=== PATIENT | male | born 1960 | race Caucasian/White ===

== ENCOUNTER 2016-10-12 13:15 | Inpatient (IN) | payer OTHER ==
[~2016-10-12] VITALS: Ht 193 cm; Wt 70.3 kg
--- NOTE | 2016-10-12 13:29 | NUR ---
PT IS A 56 YEAR OLD MALE, PRESENTS TO ED VIA [facility] ALS WITH C/O DIZZINESS AND GENERALIZED WEAKNESS X3 DAYS. PER MEDIC, PT WAS AT [employer] UNDER TENT, BS ON SCENE WAS 156. PT DENIES ANY CHEST PAIN. EN ROUTE PT WAS GIVEN 250CC NS TOTAL. UPON ARRIVAL, PT REPORTS SLIGHT DIZZINESS, AND GENERALIZED WEAKNESSS, PT RBEATHING IS EVEN AND UNLABORED, NO S/S OF RESPRIATORY DISTRESS. SPEECH IS CLEAR AND APPROPRIATE. PT A/O X4. PT DENIES ANY N/V/D/C. PT HOOKED TO FULL PUMPER GAUGER APPRENTICE. MSE EPRFORMED BY DR. BRADLEY.
[2016-10-12 14:02] LABS: BASOPHIL % 0.7 % (0-2); PLATELET COUNT 255 x10^3mcL (130-400); RED CELL DISTRIBUTION WIDTH 15.1 % (11.5-14.5)
[2016-10-12 14:19] LABS: CALCIUM 9.9 mg/dL (8.5-10.1); CARBON DIOXIDE 25.8 mmol/L (21-32); CREATININE SERUM 2.5 mg/dL (0.7-1.3); POTASSIUM SERUM 4.2 mmol/L (3.5-5.1)
[2016-10-12 14:31] LABS: ALBUMIN 4.3 g/dL (3.4-5.0); BILIRUBIN TOTAL 0.4 mg/dL (0.20-1.00); MAGNESIUM 2.6 mg/dL (1.8-2.4); T4(THYROXINE) 10.3 ug/dL (4.7-13.3)
[2016-10-12 14:34] LABS: TOTAL PROTEIN, SERUM 8.4 g/dL (6.4-8.2)
[2016-10-12] MEDS ORDERED: METHOTREXATE (15:31)
[2016-10-12] MEDS ORDERED: FOLIC ACID (15:31)
[2016-10-12 15:41] LABS: UA SPECIFIC GRAVITY 1.025 (1.005-1.035); microscopic required? YES; urine erythrocyte TRACE (NEGATIVE)
[2016-10-12 15:51] LABS: AMPHETAMINE QUAL UR POSITIVE (NEG <=1000)
--- NOTE | 2016-10-12 16:14 | NUR ---
ADELA CALLED TO [facility], SHE WILL ASSUME CARE PRIMARY RN JUDIE ESPINO.
--- NOTE | 2016-10-12 17:39 | NUR ---
RECEIVED PT FROM ED [facility]IA [employer], CAME IN DUE TO SYNCOPE. AAOX4. DENIES HEADACHE/DIZZINESS AT THIS TIME. C/O TINGLING SENSATION ON HIS FACE. ABLE TO FOLLOW COMMANDS. C/O MILD SOB WORSE ON AMBULATION. ON 2LPM/NC, O2 SAT=99%. DENIES CHEST PAIN/PRESSURE, SR W/ ELEVATED T WAVE. DENIES ABDOMINAL DISCOMFORT. BOWEL SOUNDS ACTIVE. C/O 9/10 SHOULDER PAIN, RIGHT GREATER THAN THE LEFT. IV SITE PATENT AND INTACT. PAGED DR. RILEY FOR ADMIT ORDERS. WAITING FOR CALLBACK. SIDE RAILS UPX2. CALL LIGHT ON REACH. ENDORSED.
[2016-10-12 17:55] VITALS: BP 124/88
[2016-10-12 17:59] VITALS: Ht 193 cm; Wt 70.3 kg
--- NOTE | 2016-10-12 18:01 | NUR ---
CALLED TO DR. RILEY AND ASKED FOR ADMISSION ORDER, DR. RILEY SAID THAT HE WILL PUT ORDER IN THE [facility].
--- NOTE | 2016-10-12 18:55 | NUR ---
Pt. REMAINS AAOX4. RESPIRATIONS EVEN AND UNLABORED. DENIES PAIN/DISCOMFORT AT THIS TIME. NO DISTRESS NOTED AT THIS TIME. TELE IN PLACE. IVF RUNNING TO IV AT LEFT AC PATENT AND INTACT. SCD IN PLACE. BED LOW/LOCKED. CALL LIGHT IN REACH.
--- NOTE | 2016-10-12 20:15 | NUR ---
RECEIVED PT IN BED AAOX4 , PT'S VERY ANXIOUS /ANGRY WHEN ASK QUESTIONS , ON 2L N/C SAT 98% NO RESP DISTRESS NOTED, LUNG SOUNDS DIMINISHED , SKIN WARM TOUCH POOR HYGIENE NOTED , ABD SOFT BS ACTIVE X4, PT DENY SYNCOPE AT THE MOENT , TELE NUMBER 10 SHOWS SR WITH ELEVATED T-WAVE. PIV INTACT INFUSING WELL .
--- NOTE | 2016-10-12 20:16 | NUR ---
PATIENT'S PLAN OF CARE WAS DISCUSSED AND REVIEWED WITH CATTLE SHIPPER:ARAVIND LOU
[2016-10-12 22:15] VITALS: BP 123/70
--- NOTE | 2016-10-12 23:39 | NUR ---
I HAVE REVIEWED THE DATA COLLECTION BY LUTHER (NAME):ARAVIND LOU ENTERED ON (DATE/TIME):10/12/16 I CONCUR WITH THE DATA AND ANY EXCEPTIONS OR COMMENTS ARE LISTED BELOW:
--- NOTE | 2016-10-13 02:37 | NUR ---
PT'S IN BED WITH EYES CLOSED , TELE NSR , PIV INTACT INFUSING WELL.
[2016-10-13 06:13] VITALS: BP 111/72
--- NOTE | 2016-10-13 06:26 | NUR ---
PT HAD UNEVENTFUL NIGHT SLEPT MOST OF THE NIGHT, NO CHANGES OF CONDITION NOTED, PT DENY SYNCOPE AT THE MOMENT , PIV INTACT INFUSING WELL , TELE NSR WITH ELEVATED T-WAVE.
[2016-10-13 06:42] LABS: BASOPHIL % 0.7 % (0-2); PLATELET COUNT 195 x10^3mcL (130-400)
[2016-10-13 06:57] LABS: RED CELL DISTRIBUTION WIDTH 15.4 % (11.5-14.5)
--- NOTE | 2016-10-13 07:20 | NUR ---
RECEIVED REPORT FROM [facility] NURSE NAZARIO AT THIS TIME. PATIENT IS RESTING IN BED, AWAKE ALERT AND O X4. ON O2 2L VIA NC, NO DISTRESS NOTED. TELE # [address] DENIES CHEST PAIN. PULSES MODERATE. BOWEL SOUNDS ACTIVE. DENIES URINARY PROBLEMS/DISCOMFORT. IV TO LAC IN PLACE. SCDS IN PLACE TO BLE. WILL CONTINUE TO MONITOR.
[2016-10-13 07:24] LABS: CARBON DIOXIDE 22.4 mmol/L (21-32); CHLORIDE SERUM 108 mmol/L (98-107); CREATININE SERUM 0.9 mg/dL (0.7-1.3); GFR1 > 60 mL/min; GLUCOSE SERUM 93 mg/dL (74-106); POTASSIUM SERUM 4.2 mmol/L (3.5-5.1); SODIUM SERUM 143 mmol/L (136-145)
[2016-10-13 09:16] VITALS: BP 119/66
--- NOTE | 2016-10-13 10:30 | NUR ---
DR. SAAVEDRA IN TO SEE PATIENT AT THIS TIME.
[2016-10-13 12:19] VITALS: BP 119/66
--- NOTE | 2016-10-13 12:51 | NUR ---
PATIENT SITTING UP IN BED EATING LUNCH. TOLERATING DIET WELL. NO DISTRESS NOTED. WILL CONTINUE TO MONITOR.
[2016-10-13 12:56] VITALS: BP 114/74
--- NOTE | 2016-10-13 13:35 | NUR ---
D/C UNDERSTABLE CONDITION. DENIES PAIN. VSS. REMOVED OXYGEN, PT TOLERATED WELL. NO SOB NOTED. SATURATION = 95% BREATHING E/U. TELE REMOVED, ID BANDS REMOVED. PROVIDED D/C INSTRUCTIONS, QUESTIONS AND CONCERNS ADDRESSED. PT VERBALIZED UNDERSTANDING. PT TO PICKED UP BY FRIEND. ALL BELONGINGS SENT WITH PATIENT.
--- NOTE | 2016-10-13 13:35 | NUR ---
DISCHARGE INSTRUCTIONS GIVEN TO PATIENT AT THIS TIME. PATIENT VERBALIZES UNDERSTANDING. QUESTIONS AND CONCERNS ADDRESSED. ID BAND REMOVED, TELE # 10 REMOVED.
== END 2016-10-13 14:03 | disposition home or self-care (01) | DRG 460 ==
LOC: ED 13:15 → DU 15:52
PROVIDERS: Emergency Medicine; ADMIT Internal Medicine Pulmonary Disease
DX: N17.9 Acute kidney failure, unspecified (principal); F14.10 Cocaine abuse, uncomplicated; E86.0 Dehydration; M06.9 Rheumatoid arthritis, unspecified; F15.10 Other stimulant abuse, uncomplicated; F17.200 Nicotine dependence, unspecified, uncomplicated
CPT/HCPCS: 80307; 82962; 83880; J1650; J7030

== ENCOUNTER 2016-10-21 20:51 | Emergency (ER) | payer OTHER ==
[~2016-10-21 20:51] MED LIST: FOLIC ACID; METHOTREXATE
[2016-10-21 23:55] VITALS: BP 137/81
== END 2016-10-21 23:55 | disposition home or self-care (01) ==
LOC: ED 20:51
DX: M47.896 Other spondylosis, lumbar region (principal); Z79.899 Other long term (current) drug therapy
CPT/HCPCS: J1885

== ENCOUNTER 2016-12-03 20:04 | Emergency (ER) | payer OTHER ==
[~2016-12-03] VITALS: Ht 182.9 cm; Wt 81.6 kg
[2016-12-03 21:49] LABS: BASOPHIL % 0.2 % (0-2); PLATELET COUNT 229 x10^3mcL (130-400)
[2016-12-03 21:50] LABS: RED CELL DISTRIBUTION WIDTH 15.1 % (11.5-14.5)
[2016-12-03 21:53] LABS: CALCIUM 8.9 mg/dL (8.5-10.1); CARBON DIOXIDE 25.6 mmol/L (21-32); CHLORIDE SERUM 110 mmol/L (98-107); CREATININE SERUM 0.9 mg/dL (0.7-1.3); GFR1 > 60 mL/min; GLUCOSE SERUM 112 mg/dL (74-106); POTASSIUM SERUM 4.1 mmol/L (3.5-5.1); SODIUM SERUM 146 mmol/L (136-145)
[2016-12-03 22:32] LABS: microscopic required? NO
[2016-12-03 22:57] LABS: UA SPECIFIC GRAVITY >=1.030 (1.005-1.035); urine erythrocyte NEGATIVE (NEGATIVE)
[2016-12-03 23:06] LABS: AMPHETAMINE QUAL UR POSITIVE (NEG <=1000)
[2016-12-04 00:46] VITALS: BP 126/81
== END 2016-12-04 00:46 | disposition home or self-care (01) ==
LOC: ED 20:04
PROVIDERS: Emergency Medicine Emergency Medical Services
DX: R53.1 Weakness (principal); F14.90 Cocaine use, unspecified, uncomplicated; F15.90 Other stimulant use, unspecified, uncomplicated; R20.0 Anesthesia of skin; Z79.899 Other long term (current) drug therapy; Z88.1 Allergy status to other antibiotic agents
CPT/HCPCS: G0480; J7030; J7040

== ENCOUNTER 2018-01-25 12:26 | Emergency (ER) | payer OTHER ==
[~2018-01-25] VITALS: Ht 190.5 cm; Wt 80.7 kg
[2018-01-25 12:36] VITALS: Ht 190.5 cm; Wt 80.7 kg
[2018-01-25 13:02] LABS: CALCIUM 8.4 mg/dL (8.5-10.1); CARBON DIOXIDE 27.7 mmol/L (21-32); CHLORIDE SERUM 107 mmol/L (98-107); CREATININE SERUM 0.8 mg/dL (0.7-1.3); GFR1 > 60 mL/min; GLUCOSE SERUM 88 mg/dL (74-106); POTASSIUM SERUM 4.1 mmol/L (3.5-5.1); SODIUM SERUM 145 mmol/L (136-145)
[2018-01-25 13:06] LABS: ALBUMIN 3.8 g/dL (3.4-5.0); ALKALINE PHOSPHATASE 81 U/L (46-116); ALT/SGPT 22 U/L (16-63); AST/SGOT 14 U/L (15-37); BILIRUBIN TOTAL 0.29 mg/dL (0.20-1.00); TOTAL PROTEIN, SERUM 7.5 g/dL (6.4-8.2)
[2018-01-25 13:09] LABS: CHOLESTEROL 110 mg/dL (<200)
[2018-01-25 13:12] LABS: BASOPHIL % 0.5 % (0-2); PLATELET COUNT 268 x10^3mcL (130-400); RED CELL DISTRIBUTION WIDTH 14.2 % (11.5-14.5)
[2018-01-25 13:21] LABS: FREE T4 1.04 ng/dL (0.76-1.46); FREE THYROXINE INDEX 2.8 ug/dL (1.4-4.5); T4(THYROXINE) 8.5 ug/dL (4.7-13.3)
[2018-01-25 13:32] LABS: T3 TOTAL 1.19 ng/mL
[2018-01-25 14:06] VITALS: BP 121/67
[2018-01-25 14:54] LABS: UA SPECIFIC GRAVITY >=1.030 (1.005-1.035); microscopic required? YES; urine erythrocyte TRACE (NEGATIVE)
[2018-01-25 14:59] LABS: AMPHETAMINE QUAL UR POSITIVE (See below)
== END 2018-01-25 16:08 | disposition home or self-care (01) ==
LOC: ED 12:26
PROVIDERS: Specialist
DX: F15.10 Other stimulant abuse, uncomplicated (principal); E86.0 Dehydration; J44.9 Chronic obstructive pulmonary disease, unspecified; I10 Essential (primary) hypertension; F17.210 Nicotine dependence, cigarettes, uncomplicated
CPT/HCPCS: 84439; G0480; Q0092

== ENCOUNTER 2019-04-25 19:08 | Emergency (ER) | payer OTHER ==
[~2019-04-25] VITALS: Ht 172.7 cm; Wt 68.0 kg
[2019-04-25 19:20] VITALS: Ht 172.7 cm; Wt 68.0 kg
[2019-04-25 19:40] LABS: BASOPHIL % 0.4 % (0-2); PLATELET COUNT 215 x10^3mcL (130-400)
[2019-04-25 19:42] LABS: RED CELL DISTRIBUTION WIDTH 15.1 % (11.5-14.5)
[2019-04-25 20:10] LABS: CALCIUM 7.9 mg/dL (8.5-10.1); CARBON DIOXIDE 26.8 mmol/L (21-32); CHLORIDE SERUM 104 mmol/L (98-107); CREATININE SERUM 0.8 mg/dL (0.7-1.3); GFR1 > 60 mL/min; GLUCOSE SERUM 97 mg/dL (74-106); POTASSIUM SERUM 4.1 mmol/L (3.5-5.1); SODIUM SERUM 139 mmol/L (136-145)
[2019-04-25 20:15] LABS: ALBUMIN 3.6 g/dL (3.4-5.0); ALKALINE PHOSPHATASE 70 U/L (46-116); ALT/SGPT 23 U/L (16-63); AST/SGOT 12 U/L (15-37); BILIRUBIN DIRECT 0.12 mg/dL (0.0-0.2); BILIRUBIN TOTAL 0.32 mg/dL (0.20-1.00); LIPASE 61 IU/L (73-393)
[2019-04-25 23:03] LABS: AMPHETAMINE QUAL UR NONE DETECTED (See below)
[2019-04-26 02:04] VITALS: BP 108/78
== END 2019-04-26 02:04 | disposition home or self-care (01) ==
LOC: ED 19:08
PROVIDERS: Student in an Organized Health Care Education/Training Program
DX: R56.9 Unspecified convulsions (principal); J18.9 Pneumonia, unspecified organism; J44.9 Chronic obstructive pulmonary disease, unspecified; I10 Essential (primary) hypertension; E11.9 Type 2 diabetes mellitus without complications; M19.90 Unspecified osteoarthritis, unspecified site; Z59.0 Homelessness
CPT/HCPCS: 36415; G0480; Q0092; Q0162

== ENCOUNTER 2019-05-03 13:24 | Emergency (ER) | payer OTHER ==
[~2019-05-03] VITALS: Ht 190.5 cm; Wt 75.3 kg
[2019-05-03 13:30] VITALS: Ht 190.5 cm; Wt 75.3 kg
[2019-05-03 16:25] VITALS: BP 126/80
== END 2019-05-03 16:25 | disposition home or self-care (01) ==
LOC: ED 13:24
DX: M51.36 Other intervertebral disc degeneration, lumbar region (principal); I10 Essential (primary) hypertension; E11.9 Type 2 diabetes mellitus without complications; J44.9 Chronic obstructive pulmonary disease, unspecified; M19.90 Unspecified osteoarthritis, unspecified site
CPT/HCPCS: 99406; J1885